=== PATIENT | male | born 1965 | race African-American/Black ===

== ENCOUNTER 2019-09-03 07:57 | Emergency (ER) | payer MEDICARE ==
[~2019-09-03] VITALS: Ht 193 cm; Wt 89.9 kg
[2019-09-03 07:58] VITALS: BP 148/93
--- NOTE | 2019-09-03 08:09 | NUR ---
Patient ambulated to bed 3. RN evaluating patient at bedside.
--- NOTE | 2019-09-03 08:12 | NUR ---
53/M BIB SELF C/O RIGHT INNER ANKLE WOUND & BURNING PAIN 04/13 X 1 MONTH. OTC ANTIBACTERIAL OINTMENT AND GAUZE APPLIED. PATIENT POSITIONED FOR COMFORT. BED DOWN. ER MD MADE AWARE OF PT STATUS.
--- NOTE | 2019-09-03 08:23 | NUR ---
Dr. Hopper is evaluating the patient at bedside.
[2019-09-03] MEDS ORDERED: CEPHALEXIN 500 MG CAP PO ONE (08:25)
[2019-09-03] MEDS ORDERED: SULFAMETH/TRIMETH DS 800/160MG 1 TAB PO ONE (08:25)
[2019-09-03 08:38] VITALS: BP 148/93
--- NOTE | 2019-09-03 08:38 | NUR ---
Note hoangone in EDM - 09/03/19 at 0840 by [facility] Patient discharged with v/s stable. Written and verbal after care instructions given and explained. Patient alert, oriented and verbalized understanding of instructions. Ambulatory with steady gait. All questions addressed prior to discharge. ID band removed. Patient advised to follow up with PMD. Rx of BACTRIM & KEFLEX given. Patient educated on indication of medication including possible reaction and side effects. Opportunity to ask questions provided and answered.
== END 2019-09-03 08:38 | disposition home or self-care (01) ==
LOC: MED 07:57
DX: L03.115 Cellulitis of right lower limb (principal)
CPT/HCPCS: 99283

== ENCOUNTER 2022-12-24 16:25 | Emergency (ER) | payer MEDICARE, OTHER ==
[~2022-12-24] VITALS: Ht 193 cm; Wt 88.5 kg
[2022-12-24 16:30] VITALS: BP 155/98; PULSE 94; RESP 18; TEMP 98.6; O2SAT 98
--- NOTE | 2022-12-24 16:36 | NUR ---
57 Y/O FEMALE BIBA FROM HOME, PT STATES HE SMOKED MARIJUANA AT HOME, BUT DENIES ANY OTHER DRUG USE. UPON ARRIVAL, [facility] REPORTS PT WAS NOT RESPONSIVE, PUPILS PINPOINT AND NEEDED ASSISTED VENTILATION. FIRE GAVE 6MG NARCAN IN AND PT BECAME MORE RESPONSIVE. PT NOW CURRENTLY GCS 15. SKIN IS PINK/WARM/DRY; AAOX4. PATIENT POSITIONED FOR COMFORT; HOB ELEVATED; BEDRAILS UP X2; BED DOWN. ER MD MADE AWARE OF PT STATUS.
[2022-12-24 16:37] VITALS: O2SAT 98
[2022-12-24] MEDS ORDERED: levETIRAcetam 1,000 MG in NACL 0.9% 100 ML IV ONE (16:40)
--- NOTE | 2022-12-24 17:52 | NUR ---
PATENT CHANGED ROOM TO ER BED 06
--- NOTE | 2022-12-24 18:01 | NUR ---
PT GURNEYS TO BED 6 , PREVIOUSLY IN BED 11
[2022-12-24] MEDS ORDERED: NALO4SPR NS (18:19)
--- NOTE | 2022-12-24 18:20 | NUR ---
57 YO M SANTI FROM FRIENDS HOUSE. PT STATES HE HAS BEEN DRINKING ALL DAY AT HIS FRIENDS HOUSE, FRIEND CALLED AMBULANCE TO BE ACCESSED. PT DENIES PAIN, INJURY, N,V,D. PT ANSWERED ALL QUESTIONS MUMBLING. STATED HES DRUNK. AOX4. NAD. SAFETY MAINTAINED. HX:DENIES NKA
[2022-12-24] MEDS ORDERED: BACI-105 TP (18:23)
[2022-12-24] MEDS ORDERED: BACITRACIN OINT 500 UNITS/GM PKT TP ONE (18:25)
--- NOTE | 2022-12-24 18:47 | NUR ---
Patient discharged with v/s stable. Written and verbal after care instructions given and explained. Patient verbalized understanding. with . All questions addressed prior to discharge. Advised to follow up with PMD. Patient discharged with v/s stable. Written and verbal after care instructions given and explained. Patient alert, oriented and verbalized understanding of instructions. Ambulatory with steady gait. All questions addressed prior to discharge. ID band removed. Patient advised to follow up with PMD. Rx of BACITRACIN, NALOXONE HCI given. Opportunity to ask questions provided and answered.
== END 2022-12-24 18:47 | disposition home or self-care (01) ==
LOC: MED 16:25
DX: T40.2X4A Poisoning by other opioids, undetermined, initial encounter (principal); F12.90 Cannabis use, unspecified, uncomplicated; Z79.899 Other long term (current) drug therapy; Z79.2 Long term (current) use of antibiotics; Y92.89 Other specified places as the place of occurrence of the external cause
CPT/HCPCS: 99283; J1953

== ENCOUNTER 2023-07-28 11:55 | Emergency (ER) | payer OTHER ==
[~2023-07-28] VITALS: Ht 193 cm; Wt 90.3 kg
[~2023-07-28 11:55] MED LIST: BACI-105 TP; NALO4SPR NS
[2023-07-28 12:08] VITALS: BP 142/81; PULSE 97; RESP 20; TEMP 98; O2SAT 98
[2023-07-28] MEDS ORDERED: SULF-59 PO (15:29)
[2023-07-28] MEDS ORDERED: IBUP-2213 PO (15:29)
[2023-07-28 15:35] VITALS: BP 142/81; PULSE 97; RESP 20; TEMP 98; O2SAT 98
== END 2023-07-28 15:35 | disposition home or self-care (01) ==
LOC: MED 11:55
DX: S81.802A Unspecified open wound, left lower leg, initial encounter (principal); S81.801A Unspecified open wound, right lower leg, initial encounter; I73.9 Peripheral vascular disease, unspecified; Z79.899 Other long term (current) drug therapy; Z79.1 Long term (current) use of non-steroidal anti-inflammatories (NSAID); Z79.2 Long term (current) use of antibiotics; V29.99XA Rider (driver) (passenger) of other motorcycle injured in unspecified traffic accident, initial encounter; Y93.89 Activity, other specified; Y92.410 Unspecified street and highway as the place of occurrence of the external cause; Y99.8 Other external cause status
CPT/HCPCS: 73630; 99283

== ENCOUNTER 2023-08-10 16:15 | Emergency (ER) | payer OTHER ==
[~2023-08-10 16:15] MED LIST changes: +IBUP-2213 PO; +SULF-59 PO
== END 2023-08-10 16:30 | disposition left against medical advice (07) ==
LOC: MED 16:15
DX: Z76.0 Encounter for issue of repeat prescription (principal); Z53.21 Procedure and treatment not carried out due to patient leaving prior to being seen by health care provider

== ENCOUNTER 2023-08-12 11:15 | Emergency (ER) | payer OTHER ==
[~2023-08-12] VITALS: Ht 193 cm; Wt 91.6 kg
[2023-08-12 12:25] VITALS: BP 149/98; PULSE 79; RESP 16; TEMP 97.6; O2SAT 98
== END 2023-08-12 13:40 | disposition left against medical advice (07) ==
LOC: MED 11:15
DX: M79.673 Pain in unspecified foot (principal); Z76.0 Encounter for issue of repeat prescription; Z53.21 Procedure and treatment not carried out due to patient leaving prior to being seen by health care provider
CPT/HCPCS: 99281

== ENCOUNTER 2023-08-22 15:57 | Emergency (ER) | payer OTHER ==
[~2023-08-22] VITALS: Ht 193 cm; Wt 93.4 kg
[2023-08-22 16:05] VITALS: BP 153/97; PULSE 87; RESP 18; TEMP 96.9; O2SAT 98
[2023-08-22] MEDS ORDERED: CEPH-588 PO (16:48)
[2023-08-22] MEDS ORDERED: KETOROLAC 30 MG/ML VIAL IM ONE (16:50)
== END 2023-08-22 17:25 | disposition home or self-care (01) ==
LOC: MED 15:57
DX: S91.331A Puncture wound without foreign body, right foot, initial encounter (principal); L03.115 Cellulitis of right lower limb; Z79.899 Other long term (current) drug therapy; X58.XXXA Exposure to other specified factors, initial encounter; Y93.89 Activity, other specified; Y92.89 Other specified places as the place of occurrence of the external cause; Y99.8 Other external cause status
CPT/HCPCS: 99283

== ENCOUNTER 2023-08-26 17:25 | Emergency (ER) | payer OTHER ==
[~2023-08-26] VITALS: Ht 193 cm; Wt 93.0 kg
[~2023-08-26 17:25] MED LIST changes: +CEPH-588 PO
[2023-08-26 17:55] VITALS: BP 124/80; PULSE 86; RESP 16; TEMP 98.7; O2SAT 100
[2023-08-26] MEDS: ACETAMINOPHEN 325 MG TAB PO ONE (18:39)
[2023-08-26 18:42] LABS: BASOPHILS # (AUTO) 0.1 K/uL (0.00-0.22); BASOPHILS % (AUTO) 1.1 % (0.0-2.0); EOSINOPHILS # (AUTO) 0.2 K/uL (0-0.4); HEMATOCRIT 36.2 % (36-52); HEMOGLOBIN 12.4 g/dL (12.0-18.0); LYMPHOCYTES # (AUTO) 1.7 K/uL (2.0-11.5); LYMPHOCYTES % (AUTO) 27.3 % (20.5-51.1); MEAN CORPUSCULAR HEMOGLOBIN 32 pg (27-31); MEAN CORPUSCULAR HGB CONC 34 g/dL (33-37); MEAN CORPUSCULAR VOLUME 94.6 fL (80-94); MONOCYTES # (AUTO) 0.6 K/uL (0.8-1.0); MONOCYTES % (AUTO) 9.4 % (1.7-9.3); NEUTROPHILS # (AUTO) 3.6 K/uL (1.8-7.7); NEUTROPHILS % (AUTO) 59.2 % (42.2-75.2); PLATELET COUNT (AUTO) 438 K/uL (140-450); RED BLOOD CELL COUNT(AUTO) 3.83 MIL/uL (4.20-6.10); WHITE BLOOD COUNT (AUTO) 6.1 K/uL (4.8-10.8)
[2023-08-26 18:50] LABS: ANION GAP 9.8 (8-16); CALCIUM 8.4 mg/dL (8.5-10.1); CARBON DIOXIDE 28.2 mmol/L (21-32); CREATININE 1.1 mg/dL (0.6-1.3)
[2023-08-26] MEDS ORDERED: CEPH-588 PO (19:14)
[2023-08-26] MEDS ORDERED: ACET-10509 PO (19:14)
[2023-08-26] MEDS ORDERED: BACTO TP (19:14)
[2023-08-26] MEDS ORDERED: BACITRACIN OINT 500 UNITS/GM PKT TP ONE (19:21)
[2023-08-26 19:29] VITALS: O2SAT 98
[2023-08-26 19:40] VITALS: BP 148/84; PULSE 89; RESP 17; TEMP 98.2; O2SAT 97
[2023-08-27] MEDS ORDERED: BACITRACIN ZINC/POLYMYXIN B OINT 30 GM TUBE TP SCH (09:00)
== END 2023-08-26 19:40 | disposition home or self-care (01) ==
LOC: MED 17:25
DX: L03.115 Cellulitis of right lower limb (principal); Z79.899 Other long term (current) drug therapy
CPT/HCPCS: 36415; 73630; 80048; 85025; 85379; 85651; 86140; 99284

== ENCOUNTER 2023-10-31 19:05 | Emergency (ER) | payer OTHER ==
[~2023-10-31] VITALS: Ht 193 cm; Wt 95.3 kg
[~2023-10-31 19:05] MED LIST changes: +ACET-10509 PO; +BACTO TP
[2023-10-31 19:35] VITALS: BP 117/71; PULSE 98; RESP 18; TEMP 97.4; O2SAT 99
[2023-10-31] MEDS ORDERED: IBUP-2213 PO (20:07)
[2023-10-31] MEDS ORDERED: CEPH-588 PO (20:07)
[2023-10-31] MEDS ORDERED: PRED20TA5 PO (20:07)
[2023-10-31 20:11] VITALS: BP 114/70; PULSE 96; RESP 17; TEMP 97.4; O2SAT 99
== END 2023-10-31 20:11 | disposition home or self-care (01) ==
LOC: MED 19:05
DX: J06.9 Acute upper respiratory infection, unspecified (principal); J34.0 Abscess, furuncle and carbuncle of nose; Z79.899 Other long term (current) drug therapy
CPT/HCPCS: 99283

== ENCOUNTER 2023-11-03 19:06 | Emergency (ER) | payer OTHER ==
[~2023-11-03] VITALS: Ht 193 cm; Wt 90.3 kg
[~2023-11-03 19:06] MED LIST changes: +PRED20TA5 PO
[2023-11-03 19:08] VITALS: BP 98/76; PULSE 104; RESP 18; TEMP 98.5; O2SAT 95
== END 2023-11-03 19:39 | disposition home or self-care (01) ==
LOC: MED 19:06
DX: J06.9 Acute upper respiratory infection, unspecified (principal); Z79.899 Other long term (current) drug therapy
CPT/HCPCS: 99281

== ENCOUNTER 2024-02-17 00:30 | Emergency (ER) | payer OTHER ==
[~2024-02-17] VITALS: Ht 193 cm; Wt 90.7 kg
[~2024-02-17 00:30] MED LIST changes: -ACET-10509 PO; +ACET500T99 PO
[2024-02-17 00:49] VITALS: BP 127/67; PULSE 91; RESP 16; TEMP 97.4; O2SAT 97
[2024-02-17] MEDS: HYDROcodone/APAP 5/325 MG 1 TAB TAB PO ONE (05:04)
[2024-02-17] MEDS: KETOROLAC 30 MG/ML VIAL IM ONE (05:05)
[2024-02-17] MEDS: AMOXIL/CLAVULANATE 875/125 MG 1 TAB PO ONE (05:05)
[2024-02-17] MEDS ORDERED: AMOX1TAB8 PO (05:14)
[2024-02-17] MEDS ORDERED: NAPR-337 PO (05:14)
== END 2024-02-17 05:26 | disposition home or self-care (01) ==
LOC: MED 00:30
DX: S91.051A Open bite, right ankle, initial encounter (principal); Z79.899 Other long term (current) drug therapy; W54.0XXA Bitten by dog, initial encounter; Y93.89 Activity, other specified; Y92.89 Other specified places as the place of occurrence of the external cause; Y99.8 Other external cause status
CPT/HCPCS: 96372; 99283; J1885